=== PATIENT | female | born 1950 | race Hispanic/Latino ===

== ENCOUNTER 2019-12-10 06:44 | Emergency (ER) | payer OTHER ==
[~2019-12-10] VITALS: Ht 154.9 cm; Wt 86.2 kg
--- NOTE | 2019-12-10 06:59 | Emergency Department Note ---
History of Present Illnes History of Present Illness Chief Complaint: Abdominal Complaints History of Present Illness This is a 69 year old female arrives to the ED with complaints of abdominal pain, recently had a cholecystectomy done a few days ago seen at [place] she received lab work and CT scan, unremarkable sent home, patient continues complaining of pain was instructed to come to [facility] by general surgeon.. 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 Any updates have been documented here. Past Medical History Recent Fever: No Clinical Suspicion of Infectio: No New/Unexplained Change in Ment: No Social History Smoking Cessation: Never Smoker Review of Systems Review of Systems Constitutional: Reports no symptoms EENTM: Reports no symptoms Cardiovascular: Reports no symptoms Respiratory: Reports no symptoms Gastrointestinal: Reports as per HPI, Reports abdominal pain Genitourinary: Reports no symptoms Musculoskeletal: Reports no symptoms Integumentary: Reports no symptoms Neurological: Reports no symptoms Psychological: Reports no symptoms Endocrine: Reports no symptoms Hematological/Lymphatic: Reports no symptoms Physical Exam Related Data Allergies: Coded Allergies: No Known Allergies (Unverified , 12/10/19) Triage Vital Signs Vital Signs Date Time Temp Pulse Resp B/P (MAP) Pulse Ox O2 Delivery O2 Flow Rate FiO2 12/10/19 06:50 98.2 86 24 161/92 97 Room Air Vital signs reviewed: Yes Physical Exam CONSTITUTIONAL Constitutional: Present well-developed, Present well-nourished HENT HENT: Present normocephalic, Present atraumatic, Present oropharynx clear/moist, Present nose normal HENT L/R: Present left ext ear normal, Present right ext ear normal EYES Eyes: Reports PERRL, Reports conjunctivae normal NECK Neck: Present ROM normal PULMONARY Pulmonary: Present effort normal, Present breath sounds normal CARDIOVASCULAR Cardiovascular: Present regular rhythm, Present heart sounds normal, Present capillary refill normal, Present normal rate GASTROINTESTINAL Abdominal: Present soft, Present bowel sounds normal, Present tender GENITOURINARY Genitourinary: Present exam deferred SKIN Skin: Present warm, Present dry MUSCULOSKELETAL Musculoskeletal: Present ROM normal NEUROLOGICAL Neurological: Present alert, Present oriented x 3, Present no gross motor or sensory deficits PSYCHOLOGICAL Psychological: Present mood/affect normal, Present judgement normal Results Laboratory Lab results reviewed: Yes Imaging Imaging results reviewed: Yes Assessment & Plan Medical Decision Making MDM 69-year-old female continues to complain of pain, she is postop from cholecystectomy done several days ago. Patient evaluated by general surgeon at bedside discharged home on Ativan and pain medication her general surgeon. No concerns of acute infection or surgical process at time of discharge. All clinical impressions and diagnoses provided are preliminary ED det erminations subject to the inherent limitations of an emergent non-scheduled evaluation and possible lack of comprehensive previous records. All patient care including history taking, review of systems, physical exam, nursing notes review, medical decision making, clinical course management in the emergency department, clinical impression, disposition and plan formulation was performed on the date of service. This note was created using a voice-recognition transcribing system. Incorrect words or phrases may have been missed during proofreading. Please interpret accordingly. Assessment & Plan Final Impression: (1) Abdominal pain Depart Disposition: HOME, SELF-CARE Last Vital Signs Date Time Temp Pulse Resp B/P (MAP) Pulse Ox O2 Delivery O2 Flow Rate FiO2 12/10/19 06:50 98.2 86 24 161/92 97 Room Air TAB LOMELI DO Dec 10, 2019 06:59
[2019-12-10] MEDS ORDERED: ONDANSETRON HCL INJ 2MG/ML 2ML 2 MG/ML VIAL IV STA (07:04)
[2019-12-10 07:11] LABS: BASOPHILS # (AUTO) 0.1 (0.0-0.1); BASOPHILS % 0.4 % (0.0-1.0); EOSINOPHILS % 0.1 % (0.0-6.0); HEMATOCRIT 38.5 % (34.2-44.1); HEMOGLOBIN 12.4 g/dL (12.0-16.0); LYMPHOCYTES # (AUTO) 0.7 (1.0-3.2); LYMPHOCYTES % 4.6 % (18.0-39.1); MEAN CORPUSCULAR HEMOGLOBIN 28.4 pg (28-32); MEAN CORPUSCULAR HGB CONC 32.2 g/dL (31-35); MEAN CORPUSCULAR VOLUME 88.3 fL (81-99); MONOCYTES # (AUTO) 0.9 (0.2-0.8); MONOCYTES % 5.9 % (4.4-11.3); NEUTROPHILS # (AUTO) 13.2 (2.1-6.9); NEUTROPHILS % 88.6 % (38.7-80.0); PLATELET COUNT 346 x10e3/uL (140-360); RED BLOOD COUNT 4.36 x10e6/uL (3.6-5.1); RED CELL DISTRIBUTION WIDTH 14.1 % (11.7-14.4)
[2019-12-10] MEDS ORDERED: LORAZEPAM INJ 2 MG/ML VIAL IV ONE (07:15)
[2019-12-10] MEDS ORDERED: SODIUM CHLORIDE 0.9% 1000ML 1,000 ML IV SCH (07:15)
[2019-12-10] MEDS ORDERED: MORPHINE SULFATE INJ 4 MG/ML INJ 1ML IV PRN (07:15)
[2019-12-10 07:43] LABS: ALANINE AMINOTRANSFERASE 32 IU/L (0-55); ALBUMIN 3.6 g/dL (3.5-5.0); ALKALINE PHOSPHATASE 66 IU/L (40-150); ANION GAP 14.3 mmol/L (8-16); BLOOD UREA NITROGEN 7 mg/dL (7-26); BUN/CREATININE RATIO 10 (6-25); CALCIUM 9.3 mg/dL (8.4-10.2); CARBON DIOXIDE 26 mmol/L (22-29); CHLORIDE 103 mmol/L (98-107); CREATINE KINASE 699 IU/L (29-168); CREATININE, SERUM 0.73 mg/dL (0.57-1.11); EST GLOMERULAR FILTRATION RATE > 60 ML/MIN (60-); GLUCOSE 166 mg/dL (74-118); POTASSIUM 3.3 mmol/L (3.5-5.1); SODIUM 140 mmol/L (136-145)
[2019-12-10] MEDS ORDERED: PIPER-TAZ 3.375 GM 50 ML IV STA (08:26)
[2019-12-10] MEDS ORDERED: SODIUM CHLORIDE 0.9% 50ML 50 ML ONE (08:29)
[2019-12-10] MEDS ORDERED: GADOBENATE DIMEGLUMINE 1 ML IV ONE (08:30)
--- NOTE | 2019-12-10 10:31 | Diagnostic Imaging Report ---
MRCP (magnetic resonance cholangiopancreatography) HISTORY: Abdominal pain Comparison: None Technique: Multiplanar and multisequence MRI images of the abdomen were obtained without and subsequently following the administration of intravenous gadolinium. Three-dimensional reconstructed images of the biliary tree are also reviewed. FINDINGS: The common bile duct appears normal in caliber. No intrahepatic biliary dilation. No pancreatic ductal dilation. No intrinsic or extrinsic defect is identified within the biliary system. The gallbladder is not well seen on this study. No mass is identified in the region of the ampulla or pancreatic head. A subcentimeter simple appearing cyst is seen within the left hepatic lobe. Otherwise, unremarkable appearance of the liver, pancreas, spleen, adrenal glands, and kidneys. The visualized bowel loops appear normal in caliber. A small amount of perihepatic and perisplenic free fluid is noted. No lymphadenopathy is seen. Impression: 1. No evidence of biliary obstruction. 2. Small amount of nonspecific perihepatic and perisplenic free fluid. Signed by: Ty Fine MD on 12/10/2019 10:27 AM
[2019-12-10 13:18] VITALS: BP 149/109
== END 2019-12-10 13:28 | disposition home or self-care (01) ==
LOC: ER 06:52
DX: R10.9 Unspecified abdominal pain (principal); Z98.890 Other specified postprocedural states
CPT/HCPCS: 36415; 74183; 80053; 82550; 82553; 84484; 85025; 99284; A9577; J2060; J2270; J2405; J2543; J7030

== ENCOUNTER 2021-09-04 15:36 | Emergency (ER) | payer OTHER, MEDICARE ==
[~2021-09-04] VITALS: Ht 154.9 cm; Wt 86.2 kg
[2021-09-04] MEDS ORDERED: DEXAMETHASONE SOD PHOS 10 MG/1 ML VIAL IM ONE (16:30)
[2021-09-04] MEDS ORDERED: HYDROCODONE/APAP 5MG-325MG TAB PO ONE (16:30)
[2021-09-04] MEDS ORDERED: METHOCARBAMOL750 MG PO (16:32)
[2021-09-04] MEDS ORDERED: KETOROLAC TROME10 MG PO (16:32)
[2021-09-04] MEDS ORDERED: ACETAMINOPHEN-1 EAC4 PEG (16:32)
[2021-09-04] MEDS ORDERED: COLACE100 M1 PO (16:40)
[2021-09-04] MEDS ORDERED: HYDROCODON-ACE1 EA11 PO (16:40)
== END 2021-09-04 17:39 | disposition home or self-care (01) ==
LOC: ER 16:37
DX: M54.30 Sciatica, unspecified side (principal); I10 Essential (primary) hypertension; E11.9 Type 2 diabetes mellitus without complications
CPT/HCPCS: 36415; 82948; 99283; J1100